=== PATIENT | male | born 1985 | race Caucasian/White ===

== ENCOUNTER 2018-02-19 05:40 | Emergency (ER) | payer OTHER, MEDICAID ==
[2018-02-19] MEDS: HYDROCODONE/APAP (5/325) TAB PO (07:07)
[2018-02-19] MEDS: DIPHTH/TET/ACEL PERTUSS (ADULT) 0.5 ML VIAL IM* (07:08)
[2018-02-19] MEDS: LIDOCAINE 1% (MDV) 10 ML INJ INFIL (07:35)
== END 2018-02-19 09:56 | disposition home or self-care (01) ==
LOC: FTE 05:40
DX: S61.210A Laceration without foreign body of right index finger without damage to nail, initial encounter (principal); F17.210 Nicotine dependence, cigarettes, uncomplicated; W23.0XXA Caught, crushed, jammed, or pinched between moving objects, initial encounter; Y92.9 Unspecified place or not applicable; Z23 Encounter for immunization
CPT/HCPCS: 12002; 73130-RT; 90471; 90715; 99283-25

== ENCOUNTER 2018-02-21 19:03 | Emergency (ER) | payer OTHER, MEDICAID | END 2018-02-21 20:32 | disposition home or self-care (01) | LOC: FTE 19:03 | DX: Z48.01 Encounter for change or removal of surgical wound dressing (principal); F17.210 Nicotine dependence, cigarettes, uncomplicated | CPT/HCPCS: 99281; Z7502 ==

== ENCOUNTER 2018-02-27 20:13 | Emergency (ER) | payer OTHER | END 2018-02-27 23:57 | disposition home or self-care (01) | LOC: FTE 23:57 | DX: Z48.02 Encounter for removal of sutures (principal); F17.210 Nicotine dependence, cigarettes, uncomplicated | CPT/HCPCS: 99281; Z7502 ==